=== PATIENT | male | born 1940 | race Caucasian/White ===

== ENCOUNTER 2020-03-10 09:51 | Outpatient (CLI) | payer MEDICARE, OTHER, SELFPAY ==
--- NOTE | 2020-03-10 11:00 | NEURO_ITS ---
PATIENT NUMBER: [id number] IMPRESSION: # Complains of increasing weakness. # No Carpal Tunnel syndrome. # Right ulnar neuropathy across the elbow. # Needle exam abnormal. # Clinical correlation recommended. # Higher involvement needs to ruled out. Nerve Conduction Studies Anti Sensory Summary Table Stim Site NR Peak (ms) P-T Amp (?V) Site1 Site2 Delta-P (ms) Dist (cm) Dewayne (m/s) Left Median Anti Sensory (2-3nd Digit) Wrist 3.3 32.5 Wrist 2-3nd Digit 3.3 14.0 42 Wrist 3.1 34.9 Wrist 2-3nd Digit 3.3 14.0 42 Right Median Anti Sensory (2-3nd Digit) Wrist 3.6 13.6 Wrist 2-3nd Digit 3.6 14.0 39 Wrist 3.8 19.1 Wrist 2-3nd Digit 3.6 14.0 39 Left Radial Anti Sensory (Base 1st Digit) Wrist 2.4 21.0 Wrist Base 1st Digit 2.4 0.0 Right Radial Anti Sensory (Base 1st Digit) Wrist 2.8 27.6 Wrist Base 1st Digit 2.8 0.0 Left Ulnar Anti Sensory (5th Digit) Wrist 3.0 20.0 Wrist 5th Digit 3.0 14.0 47 Right Ulnar Anti Sensory (5th Digit) Wrist 3.2 17.7 Wrist 5th Digit 3.2 14.0 44 Motor Summary Table Stim Site NR Onset (ms) O-P Amp (mV) Site1 Site2 Delta-0 (ms) Dist (cm) Dewayne (m/s) Left Median Motor (Abd Poll Brev) Wrist 3.6 3.6 Elbow Wrist 5.6 31.0 55 Elbow 9.2 2.3 Right Median Motor (Abd Poll Brev) Wrist 4.0 3.0 Elbow Wrist 6.0 30.0 50 Elbow 10.0 1.7 Left Ulnar Motor (Abd Dig Minimi) Wrist 3.1 3.1 A Elbow Wrist 6.4 34.0 53 A Elbow 9.5 2.6 B Elbow Wrist 5.4 27.0 50 B Elbow 8.5 2.3 Right Ulnar Motor (Abd Dig Minimi) Wrist 3.4 2.3 A Elbow Wrist 7.4 32.0 43 A Elbow 10.8 1.5 B Elbow Wrist 4.3 23.0 53 B Elbow 7.7 1.6 F Wave Studies NR F-Lat (ms) L-R F-Lat (ms) Left Median (Mrkrs) (Abd Poll Brev) 29.44 1.43 Right Median (Mrkrs) (Abd Poll Brev) 28.01 1.43 Left Ulnar (Mrkrs) (Abd Dig Min) 28.17 0.74 Right Ulnar (Mrkrs) (Abd Dig Min) 27.43 0.74 EMG Side Muscle Nerve Root Ins Act Fibs Amp Dur Recrt Comment Right 1stDorInt Ulnar C8-T1 Nml Nml Nml >12ms Reduced Right Ext Indicis Radial (Post Int) C7-8 Nml Nml Nml Nml Nml Right Ext Digitorum Radial (Post Int) C7-8 Nml Nml Nml Nml Nml Right BrachioRad Radial C5-6 Nml Nml Nml Nml Nml Right PronatorTeres Median C6-7 Nml Nml Nml Nml Nml Right Abd Poll Brev Median C8-T1 Nml Nml Nml >12ms Reduced Left 1stDorInt Ulnar C8-T1 Nml Nml Nml >12ms Reduced Left Ext Indicis Radial (Post Int) C7-8 Nml Nml Nml Nml Nml Left Ext Digitorum Radial (Post Int) C7-8 Nml Nml Nml Nml Nml Left BrachioRad Radial C5-6 Nml Nml Nml Nml Nml Left PronatorTeres Median C6-7 Nml Nml Nml Nml Nml Left Abd Poll Brev Median C8-T1 Nml Nml Nml >12ms Reduced Right ABD Dig Min Ulnar C8-T1 Nml Nml Nml >12ms Reduced Left ABD Dig Min Ulnar C8-T1 Nml Nml Nml >12ms Reduced Right Triceps Radial C6-7-8 Nml Nml Nml Nml Nml Left Triceps Radial C6-7-8 Nml Nml Nml Nml Nml MTDD
== END 2020-03-10 09:52 | disposition home or self-care (01) ==
LOC: ANHNEURO 09:53
PROVIDERS: PCP Internal Medicine; Visit Provider Psychiatry & Neurology Neurology
DX: R53.1 Weakness (principal); G56.21 Lesion of ulnar nerve, right upper limb
CPT/HCPCS: 95886; 95911

== ENCOUNTER 2020-04-28 13:01 | Outpatient (CLI) | payer MEDICARE, OTHER, SELFPAY ==
[2020-04-28 13:32] LABS: Hematocrit 35.6 % (42.0-52.0); Hemoglobin 11.5 g/dL (14.0-18.0); Mean Corpuscular HGB Conc 32.3 g/dl (32-36); Mean Corpuscular Hemoglobin 28.8 pg (26-34); Mean Corpuscular Volume 89.2 fl (80-100); Mean Platelet Volume 8.6 fl (7.4-10.4); Platelet Count Result 247 k/mm3 (150-375); Red Blood Count 3.99 M/mm3 (4.6-6.20); Red Cell Distribution Width 13.7 % (11.5-14.5); White Blood Count 11.4 K/mm3 (4.5-10.0)
[2020-04-28 13:39] LABS: Add Urine Microscopic? YES; Appearance Urine Clear (Clear); Bilirubin Urine Negative (Negative); Blood Urine Negative (Negative); Color Urine Yellow (Yellow); Creatinine Urine 317.6 mg/dL; Glucose Urine UA Negative (Negative); Ketones Urine 2+ mg/dL (Negative); Leukocyte Esterase Ur Negative LEU/UL (NEGATIVE); Mucus Urine Heavy /lpf; Nitrate Urine Negative (Negative); Protein Urine 1+ mg/dL (Negative); RBC Urine 0-2 /hpf (0-2); Specific Grav Ur 1.024 (1.001-1.035); Total Protein Urine Random 23 mg/dL
[2020-04-28 13:44] LABS: Albumin Level 3.9 g/dL (3.5-5.1); Anion Gap 7 mmol/L (8-16); Blood Urea Nitrogen 13 mg/dL (9-20); Calcium 9.3 mg/dL (8.4-10.2); Carbon Dioxide 29 mmol/L (22-30); Chloride 107 mmol/L (98-107); Estimated Glomerular Filt Rate > 60; Glucose 127 mg/dL (75-110); Phosphorus 3.4 mg/dL (2.5-4.5); Potassium 3.2 mmol/L (3.4-5.0); Sodium 143 mmol/L (137-145); Uric Acid 4.4 mg/dL (3.5-8.5)
== END 2020-04-28 13:02 | disposition home or self-care (01) ==
LOC: ANHLAB 13:03
PROVIDERS: PCP Internal Medicine; Visit Provider Internal Medicine Nephrology
DX: R60.1 Generalized edema (principal)
CPT/HCPCS: 36415; 80069; 81001; 82533; 82570; 84156; 84550; 85027; 86038

== ENCOUNTER 2020-05-06 14:58 | Outpatient (CLI) | payer MEDICARE, OTHER, SELFPAY ==
--- NOTE | ~2020-05-06 | US_ITS ---
EXAMINATION: US venous doppler [facility] DATE: 05/06/2020 15:46 INDICATION: Lower limb swelling. TECHNIQUE: Grayscale ultrasound images without and with compression and Doppler ultrasound images of the bilateral lower extremity veins were obtained. COMPARISON: None. FINDINGS: The visualized portions of right common femoral vein, profunda (deep) femoral vein, femoral vein, pop liteal vein, peroneal veins, posterior tibial veins, and greater saphenous vein outflow are patent. The visualized portions of left common femoral vein, profunda femoral vein, femoral vein, popliteal v ein, peroneal veins, posterior tibial veins, and greater saphenous vein outflow are patent. IMPRESSION: 1. No deep venous thrombosis. Reviewed, dictated and finalized at location A.
== END 2020-05-06 14:59 | disposition home or self-care (01) ==
PROVIDERS: PCP Internal Medicine; Visit Provider Internal Medicine Nephrology
DX: R60.1 Generalized edema (principal)
CPT/HCPCS: 93970

== ENCOUNTER 2020-05-07 14:20 | Outpatient (CLI) | payer MEDICARE, OTHER, SELFPAY ==
--- NOTE | 2020-05-07 | ECHO_ITS ---
Patient Info Name: Chivo Dao Age: 79 years : 1940 Gender: Male Ht: 70 in Wt: 194 lbs BSA: 2.10 m2 HR: 93 bpm BP: 134 / 76 mmHg Technical Quality: Fair Exam Date: 05/07/2020 2:48 PM Exam Location: [facility] Patient Status: Outpatient Admit Date: 05/07/2020 Staff Ordering Physician: Ezequiel Yip MD Reed Repairer: Julienne Kellogg RDCS Attending Provider: Ezequiel Yip MD Referring Physician: Theodora ZUÑIGA; Exam Type: CA echo doppler color flow Study Info Indications R01.1 - Cardiac murmur, unspecified R06.02 - Shortness of breath R60.1 - Generalized edema Complete two-dimensional, color flow and Doppler transthoracic echocardiogram is performed. Summary 1. Complete two-dimensional, color flow and Doppler transthoracic echocardiogram is performed. 2. Left ventricular chamber dimension is normal. 3. No obvious apical thrombus with normal apical contractility. 4. Left ventricular systolic function is normal, estimated at 60-65%. 5. There is mildly increased left ventricular wall thickness. 6. The left ventricular diastolic function is grade I diastolic dysfunction. 7. E/e '13 is mildly elevated. 8. Global longitudinal strain is normal at -18.0%. 9. There is mild aortic valve sclerosis. Left Ventricle E/e '13 is mildly elevated. Global longitudinal strain is normal at -18.0%. No obvious apical thrombus with normal apical contractility. Left ventricular chamber dimension is normal. Left ventricular systolic function is normal, estimated at 60-65%. There is mildly increased left ventricular wall thickness. The left ventricular diastolic function is grade I diastolic dysfunction. Right Ventricle Right ventricular chamber dimension is normal. Right ventricular systolic function is normal. Left Atria Left atrial chamber dimension is normal. Right Atria Right atrial chamber dimension is normal. Aortic Valve The aortic valve is trileaflet. There is mild aortic valve sclerosis. There is no aortic valve stenosis. There is no aortic valve regurgitation. Pulmonic Valve There is no pulmonic regurgitation. Mitral Valve There is no mitral valve stenosis. There is no mitral valve regurgitation. Tricuspid Valve There is no tricuspid valve regurgitation. Pericardium/Pleural There is no pericardial effusion. Inferior Vena Cava Normal inferior vena cava with >50% collapse upon inspiration consistent with normal right atrial pressure, 5 mmHg. Aorta The aortic root size at the sinus of Valsalva is normal. Left Ventricular Outflow Tract Name Value Normal LVOT 2D LVOT Diameter 2.0 cm LVOT Doppler LVOT Peak Gradient 5 mmHg LVOT Mean Gradient 3 mmHg LVOT VTI 22 cm LVOT VTI/AV VTI Ratio 0.7 LVOT Stroke Volume 69 ml LVOT CO 5.9 l/min LVOT CI 2.8 l/min/m2 Pulmonic Valve
[2020-05-07 16:31] LABS: Albumin Level 4.2 g/dL (3.5-5.1); Anion Gap 4 mmol/L (8-16); Blood Urea Nitrogen 19 mg/dL (9-20); CRP 2.4 mg/dL (<1.0); Calcium 9.5 mg/dL (8.4-10.2); Carbon Dioxide 30 mmol/L (22-30); Chloride 106 mmol/L (98-107); Estimated Glomerular Filt Rate > 60; Glucose 117 mg/dL (75-110); Potassium 4.2 mmol/L (3.4-5.0); Sodium 140 mmol/L (137-145)
[2020-05-07 16:37] LABS: Complement C3 125 mg/dL (88-165); Rheumatoid Factor < 8.6 IU/ML (<12)
[2020-05-07 16:57] LABS: Erythrocyte Sedimentation Rate 58 mm/hr (0-20)
[2020-05-10 08:56] LABS: SM Antibody <1.0; SM/RNP Antibody <1.0; SS-A <1.0; SS-B <1.0
[2020-05-10 09:35] LABS: Anti Glomerular Basement Memb <1.0 AI (<1.0)
[2020-05-12 10:22] LABS: ANCA Screen Negative (Negative)
[2020-05-12 22:06] LABS: Complement Total CH50 >60 U/mL (31-60)
[2020-05-13 03:50] LABS: Cryoglobulin, QL Negative (Negative)
== END 2020-05-07 14:21 | disposition home or self-care (01) ==
LOC: ANHCARD 14:24
PROVIDERS: PCP Internal Medicine; Visit Provider Internal Medicine Nephrology
DX: R60.1 Generalized edema (principal); R06.02 Shortness of breath; R01.1 Cardiac murmur, unspecified
CPT/HCPCS: 36415; 80069; 82595; 83520; 85652; 86021; 86038; 86140; 86160; 86162; 86225; 86235; 86430; 93306

== ENCOUNTER 2020-06-23 11:28 | Emergency (ER) | payer MEDICARE, OTHER, SELFPAY ==
[2020-06-23 11:38] VITALS: BP 171/83; PULSE 100; RESP 16; TEMP 36.6; O2SAT 98
--- NOTE | 2020-06-23 13:04 | ECG_ITS ---
Measurements Intervals [place] Rate: 78 P: 12 AK: 189 QRS: -18 QRSD: 84 T: 57 QT: 339 QTc: 388 Interpretive Statements SINUS RHYTHM RSR' IN V1 OR V2, CONSIDER RIGHT VENTRICULAR HYPERTROPHY OR RIGHT VCD BASELINE ARTIFACT- I, II, AVR, AVL BORDERLINE ECG Electronically Signed On 06-23-2020 14:38:23 FILM EDITOR SUPERVISOR by George Regalado D.O.
--- NOTE | 2020-06-23 13:04 | ED.ABDPAIN ---
HPI - Abdominal Pain General Chief Complaint: Abdominal Pain Stated Complaint: Hernia Time Seen by Provider: 06/23/20 11:38 Source: patient Mode of arrival: ambulatory Limitations: no limitations History of Present Illness HPI narrative: 79-year-old man History of myasthenia gravis followed by Dr. Montes De Oca here Believes he has had a left-sided inguinal hernia for a while but is never had it checked out by his doctor from the sound of things Seems to him that it is been more bothersome for the last 2 weeks Typically self reduces when he lies down but today it did not and became uncomfortable prompting a trip to the ER No vomiting, bowel movements have been okay, nothing to suggest an obstruction MD elicited complaint: abdominal pain Related Data Allergies Allergy/AdvReac Type Severity Reaction Status Date / Time No Known Allergies Allergy Unknown Verified 06/23/20 11:49 Review of Systems Review of Systems: All systems reviewed & are unremarkable except as noted in HPI and below Constitutional: Constitutional: Denies chills, Reports fatigue, Denies fever(s), Denies headache(s) and Reports weakness Eyes: Eyes: Reports no additional eye complaints and Denies change in vision ENT: Denies headache(s), Denies epistaxis, Denies nasal congestion and Denies sore throat Cardiovascular: Cardiovascular: Denies chest pain, Denies leg edema, Denies palpitations and Denies dyspnea Respiratory: Respiratory: Denies cough, Denies dyspnea and Denies wheezing Gastrointestinal: Gastrointestinal: Reports abdominal pain, Denies diarrhea, Denies nausea and Denies vomiting Genitourinary: Genitourinary: Denies hematuria, Denies dysuria and Denies urinary frequency Musculoskeletal: Musculoskeletal: Denies deformity, Denies arthralgias, Denies joint swelling, Denies muscle weakness and Denies numbness Integumentary/Breasts: Skin/Breast: Denies rash and Denies wounds Neurologic: Denies headache(s), Denies focal weakness, Denies numbness and Reports weakness Psychiatric: Psychiatric: Reports no additional psychiatric complaints Endocrine: Endocrine: Denies fatigue and Denies palpitations Hematologic/Lymphatic: Hematologic/Lymphatic: Denies easy bleeding and Denies easy bruising Allergic/Immunologic: Allergic/Immunologic: Denies wheezing PMFSH Social History Social History Alcohol intake: never Gender identity (if verbalized by the patient): Male Exam Const: General: no acute distress, well developed and awake Nutritional Appearance: well nourished Orientation/consciousness: patient oriented x3 (alert) HENMT: Head: normocephalic and atraumatic Ears: external ears normal General nose exam: No nasal discharge present and no epistaxis Face and sinus: face symmetric Eyes: Conjunctivae: conjunctivae normal Sclera: sclerae normal EOM: EOMs intact bilaterally Neck: Neck: normal visual inspection, supple and no JVD Chest: Chest palpation & inspection: deferred Resp: Effort & Inspection: normal respiratory effort Auscultation: clear to auscultation bilaterally, no rales, no rhonchi, no wheezes and other (BS =) Cardio: Rate: regular rate Rhythm: regular rhythm Heart sounds: no gallops and no murmurs GI: Inspection: normal to inspection GI Palp: Yes Soft to palpation and No Tenderness to palpation present (GI) Other: There is a left-sided inguinal hernia : General: Yes no CVA tenderness Back/Spine/Pelvis: Back: no CVA tenderness Thoracic/Lumbar Spine: thoracic and lumbar spine normal to inspection Skin: General skin exam: normal color and no rashes or lesions noted Neuro: General: patient oriented x3 (alert) Cranial nerves: Yes facial symmetry Speech: normal speech Extrem: General: normal to inspection, full ROM and no pedal edema Psych: Affect: normal affect Course Course Emergency Course: Was able to place the patient in gentle Trendelenburg and get the hernia to reduce with complete resolution of his sym
[2020-06-23 13:27] VITALS: BP 154/85; PULSE 90; RESP 16; O2SAT 99
== END 2020-06-23 13:33 | disposition home or self-care (01) ==
PROVIDERS: Emergency Provider Emergency Medicine; PCP Internal Medicine
DX: K40.90 Unilateral inguinal hernia, without obstruction or gangrene, not specified as recurrent (principal); G70.00 Myasthenia gravis without (acute) exacerbation; R94.31 Abnormal electrocardiogram [ECG] [EKG]
CPT/HCPCS: 93005; 99283

== ENCOUNTER 2020-07-03 11:26 | Emergency (ER) | payer MEDICARE, OTHER, SELFPAY ==
[2020-07-03] VITALS (21 sets, daily range): BP systolic 133–167; BP diastolic 74–89; PULSE 86–130; RESP 11–22; TEMP 36.6–36.7; O2SAT 95–99
--- NOTE | ~2020-07-03 | CT_ITS ---
EXAMINATION: CT abdomen pelvis w con DATE: 07/03/2020 13:36 INDICATION: Left inguinal hernia and pain. TECHNIQUE: Computed tomography (CT) of the abdomen and pelvis was performed with 100 mL Omnipaque 350 intravenous contrast. Automated exposure control and iterative reconstruction technique were employe d. The dose-length product was 845.42 mGy-cm. COMPARISON: None. FINDINGS: The visualized portions of the lung bases demonstrate mild atelectasis. A calcified left raisa ng nodule is consistent with old granulomatous disease. No pleural effusion. The heart size is normal . No pericardial effusion. The liver, gallbladder, spleen, pancreas, adrenal glands are normal. There is a 4 mm stone in right kidney. There are cysts in left kidney measuring up to 2.9 cm. There is a 2 mm stone in left kidney. There are bilateral inguinal hernias containing fat. There are no dilated l oops of bowel. The appendix is not visualized. There are no pathologically enlarged lymph nodes. Ther e is no free intraperitoneal fluid. There is mild thoracic spondylosis and moderate lumbar spondylosi s. There is a chronic compression fracture of T11. T10 is a butterfly segment. IMPRESSION: 1. Bilaterally inguinal hernias containing fat. Reviewed, dictated and finalized at location A. OR MICROSOFT CONSULTANT
[2020-07-03 12:01] LABS: Basophils Absolute Auto 0.1 K/mm3 (0.0-0.1); Basophils Percent Auto 0.3 % (0.2-1.2); Eosinophils Percent Auto 0.1 % (0-4.4); Hematocrit 45.4 % (42.0-52.0); Hemoglobin 14.6 g/dL (14.0-18.0); Immature Granulocyte Percent A 1.4 % (0-0.5); Lymphocytes Absolute Auto 1.54 K/mm3 (0.9-3.2); Lymphocytes Percent Auto 7.1 % (18.3-44.2); Mean Corpuscular HGB Conc 32.2 g/dl (32-36); Mean Corpuscular Hemoglobin 28.6 pg (26-34); Mean Corpuscular Volume 88.8 fl (80-100); Mean Platelet Volume 9.1 fl (7.4-10.4); Monocytes Absolute Auto 0.8 K/mm3 (0.1-0.6); Monocytes Percent Auto 3.7 % (2.6-8.5); Neutrophils Absolute Auto 18.9 K/mm3 (1.3-6.7); Neutrophils Percent Auto 87.4 % (45.5-73.1); Platelet Count Result 231 k/mm3 (150-375); Red Blood Count 5.11 M/mm3 (4.6-6.20); Red Cell Distribution Width 15.1 % (11.5-14.5); White Blood Count 21.6 K/mm3 (4.5-10.0)
--- NOTE | 2020-07-03 12:06 | ECG_ITS ---
Measurements Intervals [place] Rate: 105 P: 64 AL: 184 QRS: -22 QRSD: 85 T: 69 QT: 323 QTc: 428 Interpretive Statements SINUS TACHYCARDIA EARLY PRECORDIAL R/S TRANSITION BASELINE ARTIFACT- II, III, AVR, AVL, AVF BORDERLINE ECG Electronically Signed On 07-03-2020 13:00:00 APPLICATIONS PROGRAMMER ANALYST by George Regalado D.O.
[2020-07-03 12:17] LABS: Alanine Aminotransferase 24 U/L (4-50); Albumin Level 4.5 g/dL (3.5-5.1); Alkaline Phosphatase 77 U/L (38-126); Anion Gap 10 mmol/L (8-16); Aspartate Amino Transferase 20 U/L (17-59); Bilirubin,Total 0.3 mg/dL (0.2-1.3); Blood Urea Nitrogen 17 mg/dL (9-20); Calcium 9.6 mg/dL (8.4-10.2); Carbon Dioxide 24 mmol/L (22-30); Chloride 105 mmol/L (98-107); Estimated CRCL calculation 79 ml/min; Estimated Glomerular Filt Rate > 60; Glucose 183 mg/dL (75-110); Lipase 84 U/L (23-300); Sodium 139 mmol/L (137-145)
[2020-07-03] MEDS: HYDROmorphone HCL INJ (*CRX) 1 MG/ML SYR IV PUSH (12:41)
[2020-07-03] MEDS: SODIUM CHLORIDE 0.9% IV 1,000 ML 999 ML IV CONT (12:41)
[2020-07-03] MEDS: MORPHINE SULFATE (*CRX) 4 MG/ML INJ IV PUSH (12:46)
--- NOTE | 2020-07-03 13:08 | PC.NURSE ---
PT UNABLE TO GIVE UA, REFUSING CATH.
[2020-07-03 13:09] LABS: INR 0.9; Partial Thromboplastin Time 23.2 SECONDS (22.3-36.8); Prothrombin Time 12.7 Seconds (11.1-14.7)
[2020-07-03 13:14] LABS: Lactic Acid Reflex 2.7 mmol/L (0.7-2.1)
--- NOTE | 2020-07-03 13:33 | PC.NURSE ---
PT IN CT WILL ATTEMPT TO OBTAIN UA UPON RETURN.
--- NOTE | 2020-07-03 14:39 | ED.ABDPAIN ---
HPI - Abdominal Pain General Chief Complaint: Abdominal Pain Stated Complaint: abd pain Time Seen by Provider: 07/03/20 11:34 Source: patient, family and old records reviewed Mode of arrival: ambulatory Limitations: no limitations History of Present Illness HPI narrative: Patient is a 79-year-old male who presents to emergency department for evaluation of left groin pain with history of inguinal hernia patient had been seen on the eighth in the emergency department for this had reduction of the hernia 2 days later followed with general surgery Dr. Servin to plan surgery has been doing preoperative testing and does not have a tentative surgical date patient notes yesterday he had recurrence of the hernia was able to reduce it himself but today has been unable to reduce the hernia. Patient denies other symptoms or complaints presents per private vehicle Related Data Home Medications Medication Instructions Recorded Confirmed amlodipine 5 mg-benazepril 10 mg 1 cap PO DAILY 06/24/20 06/25/20 capsule levothyroxine 50 mcg capsule 50 mcg PO DAILY 06/24/20 06/25/20 potassium chloride 20 mEq 20 meq PO DAILY 06/24/20 06/25/20 tablet,extended release(part/cryst) prednisone 20 mg tablet 20 mg PO DAILY 06/24/20 06/25/20 pyridostigmine bromide 60 mg tablet 60 mg PO BID 06/24/20 06/25/20 Allergies Allergy/AdvReac Type Severity Reaction Status Date / Time No Known Allergies Allergy Unknown Verified 06/25/20 14:34 Review of Systems Review of Systems: All systems reviewed & are unremarkable except as noted in HPI and below PMFSH Past Medical History Medical History (Updated 07/03/20 @ 14:44 by Catracho Rucker PA-C) Hypertension Hypothyroid Umbilical hernia Surgical History Surgical History History of umbilical hernia repair Family History Family History Father Heart disease Mother Heart disease Social History Social History Smoking status: Former smoker Tobacco type: cigarettes Alcohol intake: never Gender identity (if verbalized by the patient): Male Exam Narrative: Exam Narrative: GENERAL: Well-appearing, well-nourished, uncomfortable, and in no acute distress. HEAD: Normocephalic, atraumatic. EYES: PERRLA and EOMI. ENT: Nares clear, no rhinorrhea or epistaxis. Mucous membranes moist. CHEST: Clear to auscultation. No respiratory distress. No wheezes rales or rhonchi HEART: Regular rate and rhythm. No murmur heard. Normal peripheral pulses. ABDOMEN: Soft, nontender, nondistended left inguinal hernia which was manually reduced EXTREMITIES: Normal range of motion. No edema. SKIN: Warm, dry, no rash. NEURO: No focal deficits. Alert and oriented x3. PSYCH: Normal mood and affect. Course Course Emergency Course: Patient presented with inguinal hernia which was manually reduced patient was evaluated hydrate in the emergency department had CT imaging will be discharged with follow-up with general surgery felt appropriate for outpatient reevaluation given discussion and recommendations of general surgery. Patient afebrile nontoxic-appearing without emesis. Patient given strict instructions on no heavy lifting or strenuous activity until he is released by general surgery Consultations Consultation #1: Discussed case with the general surgeon Dr. Jack who recommends sending the patient home will contact the patient to facilitate close follow-up Date: 07/03/20 Time: 14:42 Vital Signs Vital signs: Vital Signs Temperature 98 F 07/03/20 11:34 Pulse Rate 130 H 07/03/20 11:34 Respiratory Rate 17 07/03/20 11:34 Blood Pressure 153/89 H 07/03/20 11:34 Pulse Oximetry 98 07/03/20 11:34 Temperature 98.1 F 07/03/20 12:51 Pulse Rate 110 H 07/03/20 13:02 Respiratory Rate 14 07/03/20 13:02 Blood Pressure 167/87 H 07/03/20
[2020-07-03 14:43] LABS: Add Urine Microscopic? YES; Appearance Urine Clear (Clear); Bilirubin Urine Negative (Negative); Blood Urine Negative (Negative); Color Urine Straw (Yellow); Glucose Urine UA 1+ mg/dL (Negative); Ketones Urine Trace mg/dL (Negative); Leukocyte Esterase Ur Negative LEU/UL (Negative); Mucus Urine Rare /lpf; Nitrate Urine Negative (Negative); Protein Urine Negative (Negative); RBC Urine 0-2 /hpf (0-2); Specific Grav Ur 1.017 (1.001-1.035); Urobilinogen Urine Negative mg/dL (<2.0); WBC Urine 0-3 /hpf
[2020-07-03 15:56] LABS: Reflex Lactic Acid Yes or No Add Lactic
== END 2020-07-03 15:25 | disposition home or self-care (01) ==
PROVIDERS: Emergency Medicine Emergency Medical Services; Emergency Provider Emergency Medicine; PCP Internal Medicine
DX: K40.90 Unilateral inguinal hernia, without obstruction or gangrene, not specified as recurrent (principal); I10 Essential (primary) hypertension; E03.9 Hypothyroidism, unspecified; Z87.891 Personal history of nicotine dependence
CPT/HCPCS: 36415; 74177; 80053; 81001; 83605; 83690; 85025; 85610; 85730; 93005; 96361; 96374; 96375; 99284; J1170; J2270; J7030; Q9967

== ENCOUNTER 2020-07-04 01:30 | Outpatient (CLI) | payer MEDICARE, OTHER, SELFPAY ==
[2020-07-04 18:59] LABS: SARS-CoV-2 RNA PCR Negative
== END 2020-07-04 01:31 | disposition home or self-care (01) ==
LOC: ANHCOVIDDT 01:30
PROVIDERS: PCP Internal Medicine; Visit Provider Surgery
DX: Z01.812 Encounter for preprocedural laboratory examination (principal); Z20.828 Contact with and (suspected) exposure to other viral communicable diseases
CPT/HCPCS: 87635; C9803; U0003

== ENCOUNTER 2020-07-08 01:20 | Day surgery (SDC) | payer MEDICARE, OTHER, SELFPAY ==
[2020-07-06 08:48] VITALS: BMI 27.2
--- NOTE | 2020-07-08 06:51 | PM.SD ---
Same Day Admit/Disch: HPI History of Present Illness Chief complaint: incarcerated left inguinal hernia Narrative: Chivo Dao is a 79 year old male Who came to [facility] emergency room back on June 23 with a left inguinal hernia. At that time the hernia was reducible and he was seen by my partner Dr. Servin in the office on June 25. The hernia was still reducible and minimally symptomatic. The patient was having some other problems evaluated before scheduling hernia surgery. However he came back to the emergency room on July 03. The hernia was at this time incarcerated and the patient was unable to reduce it at home. The emergency room provider was able to reduce the hernia. Patient was able to be sent home but is now taken to surgery for repair of his incarcerated left inguinal hernia. He has had a previous umbilical hernia repaired but no inguinal hernias. He has a history of myasthenia gravis and takes 20 mg of prednisone daily along with pyridostigmine 60 mg b.i.d. [facility] Past Medical History Medical History (Updated 07/08/20 @ 09:34 by Tristan Li DO) History of basal cell cancer Hypertension Hypothyroid Myasthenia gravis Umbilical hernia Surgical History Surgical History History of umbilical hernia repair Family History Family History Father Heart disease Mother Heart disease Social History Social History Smoking packs per day: 1 Smoking cigarettes per day: 20.0 Years smoked: 20 Smoking pack-years: 20.00 Smoking status: Former smoker Tobacco type: cigarettes Smoking end date: 07/17/74 Alcohol intake: never Living arrangements: with family Gender identity (if verbalized by the patient): Male Spiritual care concerns: No Same Day Admit/Disch: Med Pre-admit Medications Home Medications Medication Instructions Recorded Confirmed Type amlodipine 5 mg-benazepril 10 mg 1 cap PO DAILY 06/24/20 07/06/20 History capsule levothyroxine 50 mcg capsule 50 mcg PO DAILY 06/24/20 07/08/20 History potassium chloride 20 mEq 20 meq PO DAILY 06/24/20 07/08/20 History tablet,extended release(part/cryst) prednisone 20 mg tablet 30 mg PO DAILY 06/24/20 07/08/20 History pyridostigmine bromide 60 mg tablet 90 mg PO QID 06/24/20 07/08/20 History ascorbic acid (vitamin C) 1 g PO DAILY 07/06/20 07/08/20 History aspirin 325 mg PO DAILY 07/06/20 07/08/20 History cholecalciferol (vitamin D3) 25 mcg PO DAILY 07/06/20 07/08/20 History psyllium 1 packet PO BID 07/06/20 07/08/20 History hydrocodone-acetaminophen 1 - 2 tablet PO Q6H PRN #10 tablet 07/08/20 Rx ibuprofen 600 mg PO Q6H PRN #14 tablet 07/08/20 Rx Exam Const: General: comfortable, no acute distress, alert and awake HENMT: Head: normocephalic and atraumatic Mouth: Yes Normal oral and palatal mucosa present Eyes: Conjunctivae: conjunctivae normal Pupils: Equal, round and reactive pupils present EOM: EOMs intact bilaterally Neck: Neck: normal visual inspection, no lymphadenopathy and nontender Resp: Effort & Inspection: normal respiratory effort Auscultation: clear to auscultation bilaterally Cardio: Rate: regular rate Rhythm: regular rhythm Heart sounds: no gallops, no murmurs and no rubs GI: Inspection: non-distended GI Palp: Yes Soft to palpation, No Tenderness to palpation present (GI), No Hepatomegaly present and No Splenomegaly present Auscultation: normal bowel sounds : Male General Exam: Yes hernia ( left inguinal bulge, pulses with cough, reducible at present) Penis: Yes normal penis Scrotum: scrotum normal Testes: Testes normal Skin: Lesions: no lesions Rashes: no rashes Neuro: General: no focal motor deficits and CN's II-XI intact bilaterally Cranial nerves: Yes Equal, round and reactive pupils present, Yes Bilaterally intact
--- NOTE | 2020-07-08 07:04 | WPDHPUPDATE1 ---
History and Physical Update Update Date/Time: 07/08/20 07:04 History and Physical has been reviewed, including an updated exam of the patient. There are NO changes in the patient's condition. Risks, benefits, and alternatives have been discussed and questions answered. Patient agrees to proceed with procedure.
[2020-07-08 09:20] VITALS: BP 149/73; PULSE 87; RESP 16; TEMP 37.1; O2SAT 99
--- NOTE | 2020-07-08 09:30 | WPDANESEPPF ---
Anes - Initial Pre Proc Eval Procedure: Operation Date: 07/08/20 11:00 Proposed Procedures p Open Incarcerated Left Inguinal Hernia Repair - True Jack MD Date/Time: 07/08/20 09:30 Surgeon: True Jack MD Pre Op Diagnosis: incarcerated left inguinal hernia Patient Data Age: 79 Gender: M Height: 1.78 m Weight: 86.9 kg Last Vital Signs Temp 37.1 C 07/08/20 09:20 Pulse 87 07/08/20 09:20 Resp 16 07/08/20 09:20 BP 149/73 H 07/08/20 09:20 Pulse Ox 99 07/08/20 09:20 Allergies Allergy/AdvReac Type Severity Reaction Status Date / Time No Known Allergies Allergy Unknown Verified 07/06/20 08:20 Home Medications Medication Instructions Recorded Confirmed Type amlodipine 5 mg-benazepril 10 mg 1 cap PO DAILY 06/24/20 07/06/20 History capsule levothyroxine 50 mcg capsule 50 mcg PO DAILY 06/24/20 07/08/20 History potassium chloride 20 mEq 20 meq PO DAILY 06/24/20 07/08/20 History tablet,extended release(part/cryst) prednisone 20 mg tablet 30 mg PO DAILY 06/24/20 07/08/20 History pyridostigmine bromide 60 mg tablet 90 mg PO QID 06/24/20 07/08/20 History ascorbic acid (vitamin C) 1 g PO DAILY 07/06/20 07/08/20 History aspirin 325 mg PO DAILY 07/06/20 07/08/20 History cholecalciferol (vitamin D3) 25 mcg PO DAILY 07/06/20 07/08/20 History psyllium [Metamucil] 1 packet PO BID 07/06/20 07/08/20 History Patient hx anesthesia problems: none Family hx anesthesia problems: none PMFSH Past Medical History Medical History (Updated 07/08/20 @ 09:34 by Tristan Li DO) History of basal cell cancer Hypertension Hypothyroid Myasthenia gravis Umbilical hernia Surgical History Surgical History History of umbilical hernia repair Family History Family History Father Heart disease Mother Heart disease Social History Social History Smoking packs per day: 1 Smoking cigarettes per day: 20.0 Years smoked: 20 Smoking pack-years: 20.00 Smoking status: Former smoker Tobacco type: cigarettes Smoking end date: 07/17/74 Alcohol intake: never Living arrangements: with family Gender identity (if verbalized by the patient): Male Spiritual care concerns: No Anes - Eval Final PreProcedure Day of Procedure 07/08/20 09:30 Patient weight: overweight Heart: regular rate and rhythm Lungs: clear to auscultation and normal air movement Airway: Mallampati scale class II Neurological: alert and oriented Last oral intake: >/= 8 hours ASA classification: III Emergent: no Anesthetic plan: proceed Anesthesia type and monitoring: general GIVS and standard monitoring Informed Consent: The patient's anesthetic plan and its attendant risks and benefits were discussed with the patient/family/POA. Questions were solicited and answers provided to the satisfaction of the patient/family/POA.
[2020-07-08] MEDS: ACETAMINOPHEN 500 MG TABLET 1000 MG PO (09:47)
[2020-07-08] MEDS: KETOROLAC 15 MG/ML VIAL (*BKC) IV PUSH (09:57)
[2020-07-08] MEDS: LACTATED RINGERS 1,000 ML 30 ML IV CONT (09:58)
[2020-07-08] MEDS: ceFAZolin 2 GM/D5W 50 ML 2 GM/50 ML BAG IVPB (11:27)
[2020-07-08] MEDS: BUPIVACAINE HCL 0.5% PF 30 ML VIAL INFILTRATE (11:53)
[2020-07-08 13:07] VITALS: BP 127/66; PULSE 76; RESP 18; O2SAT 97
[2020-07-08 13:15] VITALS: BP 153/73; PULSE 67; RESP 16
--- NOTE | 2020-07-08 13:16 | PM.PROC ---
Procedure Note - Detailed Date of procedure: 07/08/20 Pre-op diagnosis: incarcerated left inguinal hernia Incarcerated left inguinal hernia Post-op diagnosis: same Procedure performed: Repair incarcerated left inguinal hernia with polypropylene mesh Description of procedure: The patient was taken to surgery and IV sedation was administered. The left groin and genitalia were prepped and draped. Proposed incision was marked on the skin. Local was infiltrated into the skin and the deeper subcutaneous tissues. Incision was made and deepened through the subcutaneous. Crossing veins were cauterized and divided. Dissection was carried through Cherise's fascia down to the external oblique aponeurosis. The aponeurosis was exposed as was the external ring. Additional local anesthesia was infiltrated deep to the aponeurosis in the area of the spermatic cord and inguinal canal contents. The aponeurosis was opened laterally and extended medially through the external ring. The leaves of the aponeurosis were dissected free from the spermatic cord. The ileoinguinal nerve was carefully preserved throughout the dissection and was left attached to the spermatic cord. The cord was then mobilized medially on a [place] drain. The cord was dissected back to the internal ring. The hernia was a very large indirect hernia. The hernia sac was opened and I put a finger in the hernia defect to facilitate dissection of the hernia sac from the spermatic cord. Once the sac was dissected free of the cord and almost dissected back to the internal ring, I twisted the hernia sac and then dissected fatty tissue from the cord and the hernia sac. This lipomatous tissue was excised and discarded. I continued dissection of the indirect hernia back to a high dissection. I then dunked the hernia into the retroperitoneum. The indirect defect was good-sized. There was also a medial direct hernia. With the 2 hernias, I thought it best to go ahead with an inguinal canal floor reconstruction such as a Bassini hernia repair. I proceeded with the Bassini repair to reconstruct the entire inguinal canal floor. The repair was done with interrupted 0 Ethibond suture. This started medially, suturing the pubic tubercle to the transversalis fascia. Then, proceeding laterally, the transversalis fascia was sutured to the reflection of the inguinal ligament. The internal ring was reconstructed such that it would barely admit the tip of a clamp. When this was completed, I used the polypropylene mesh and cut a patch to the appropriate size. I cut a slot in the patch laterally such that the cord could fit in the slot and the lateral leaves with passed beyond the cord. The mesh was then placed over the repair in the appropriate position. I laid the cord and ileoinguinal nerve back in the inguinal canal over the mesh. The external oblique aponeurosis was closed with interrupted 3 0 Vicryl suture. Cherise's fascia was closed with interrupted 3 0 Vicryl suture. The subcutaneous was closed with interrupted 4 0 Vicryl suture. Four 0 Vicryl subcuticular skin sutures were placed. The skin was closed finally with a running 4 0 Monocryl skin suture. The wound was dressed with Exofin surgical adhesive. The patient was awakened and taken to recovery in good condition. Sponge and needle counts were correct x2. Implants: Polypropylene mesh Anesthesia: MAC and local (0.5% Marcaine with Exparel) Surgeon: True Jack MD Party Plan Demonstrator: ANANTH Morrell Alicia Timmerman RNFA Estimated blood loss (mL): 5 Drains: No Packing: No Pathology: none sent Complications: None Condition: stable Disposition: PACU Findings: Large indirect inguinal hernia but also a medial direct inguinal hernia. Bassini repair was performed and polypropylene mesh reinforcement placed over the inguinal canal floor.
[2020-07-08 13:45] VITALS: BP 148/70; PULSE 70; RESP 14
== END 2020-07-08 14:01 | disposition home or self-care (01) ==
PROVIDERS: PCP Internal Medicine; Visit Provider Surgery
PROC: (CPT 49507; principal; 2020-07-08 11:00)
DX: K40.30 Unilateral inguinal hernia, with obstruction, without gangrene, not specified as recurrent (principal); I10 Essential (primary) hypertension; G70.00 Myasthenia gravis without (acute) exacerbation; E03.9 Hypothyroidism, unspecified; Z87.891 Personal history of nicotine dependence
CPT/HCPCS: 49507; A9270; C1781; C9290; J0690; J1885; J2250; J2405; J2704; J3010; J7120

== ENCOUNTER 2020-11-30 15:30 | Outpatient (RCR) | payer MEDICARE, OTHER, SELFPAY ==
--- NOTE | 2020-11-23 09:39 | PTOPEVAL ---
INITIAL PHYSICAL THERAPY EVALUATION and PLAN OF CARE Thank you for referring Chivo Dao to [facility].? Chivo is scheduled to be seen for physical therapy? 2x/week for 4 weeks. Please review, sign, date and return this plan of care JANETTE. I agree with and certify that the following plan of care is medically necessary. Referring Physician Date Admitting Provider: Attending Provider: Chava Vázquez, Referring Provider: *PT Outpatient Evaluation Start: 11/23/20 08:01 Freq: Status: Active Protocol: Document 11/23/20 08:01 GAVINO (Rec: 11/23/20 09:06 GAVINO [id number]) Therapy Assessment Status Assessment Status Assessment Status Evaluation Outpatient Past Medical History Past Medical History Source of Past Medical History Recalled from Previous Visit, Confirmed with Patient/Family Neurological History Hx Other Neurological Disorders Yes: myathenis gravis DX NOVEMBER 2019. DR MEMBRENO EVERY TWO MONTHS [phone] Cardiovascular History Hx Hypertension Yes Hx Other Cardiac Disorders Yes: SEES DR FROST ([place] [place] CARDIO) ONCE A YR. 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 Daughter Family told him it is because he sleeps in the recliner. Hard
--- NOTE | 2020-11-25 16:04 | PCPTNOTE ---
Patient's son called and stated patient does not feel well and could not make it to therapy.
--- NOTE | 2020-12-02 16:12 | PCPTNOTE ---
Patient's daughter called stating patient did not feel well and would not be able to make it to therapy.
--- NOTE | 2020-12-21 14:05 | PCPTNOTE ---
PHYSICAL THERAPY DISCHARGE SUMMARY Admitting Provider: Attending Provider: Chava Vázquez, Patient:Chivo Dao Date of :1940 Chivo has not returned for any further treatments since 11/30/2020, therefore he will be discharged at this time. Chivo?s initial visit was on 11/23/2020 08:00 and he had a total of 2 visits. He cancelled his 12/02/20 appointment and never called to reschedule any further appointments. Chivo had a difficult time physically walking in for PT as well as participating in treatment. He was not able to get onto or off of the treatment table without a lot of pain. If further PT is desired for his back pain, he may benefit from home health rather than coming into the clinic due to his decreased mobility. The goals have not been met. Thank you for referring Chivo to [facility]. Please review, sign, date and return this discharge summary JANETTE. I have been updated about Chivo's current status and I agree with discharge from the above service at this time. Referring Physician Date
== END 2020-12-29 10:28 | disposition home or self-care (01) ==
LOC: ANHHIPT 15:30
PROVIDERS: PCP Internal Medicine; Visit Provider Internal Medicine
DX: M54.5 Low back pain (principal)
CPT/HCPCS: 97110; 97162; 97530